=== PATIENT | male | born 1985 | race Caucasian/White ===

== ENCOUNTER 2016-11-25 18:47 | Emergency (ER) | payer OTHER ==
[~2016-11-25] VITALS: Ht 182.9 cm; Wt 66.4 kg
[~2016-11-25 18:47] MED LIST: NOHOMEMEDS
[2016-11-25 20:12] LABS: EOSINOPHIL (%) 0.9 % (0-5); EOSINOPHIL COUNT 0.1 K/uL (0-0.3); HEMATOCRIT 44.4 % (38.0-50.0); IMMATURE GRANULOCYTE (%) 0.3 % (0.0-0.7); LYMPHOCYTE COUNT 2.4 K/uL (1.0-2.8); MCHC 33.6 G/DL (30.0-36.0); MCV 89.5 FL (86-99); MEAN PLAT.VOLUME 9.9 uM^3 (9.0-12.4); MONOCYTE (%) 7.2 % (3-12); MONOCYTE COUNT 0.7 K/uL (0-0.8); NEUTROPHIL (%) 65.4 % (45-76); PLATELET COUNT 286 K/uL (156-360); RBC DIS.WIDTH-SD 39.7 % (39-53); RED BLOOD COUNT 4.96 M/uL (4.00-5.50); WHITE BLOOD COUNT 9.2 K/uL (4.1-10.2)
[2016-11-25 20:26] LABS: CHLORIDE 105 mEq/L (99-109); POTASSIUM 3.9 mEq/L (3.7-5.4); SODIUM 140 mEq/L (136-147)
[2016-11-25 20:28] LABS: GLUCOSE 85 mg/dL (70-99)
[2016-11-25 20:29] LABS: ANION GAP 12 MEQ/L (2-14)
[2016-11-25 20:30] LABS: TOTAL BILIRUBIN 0.6 mg/dL (0.0-1.0)
[2016-11-25 20:31] LABS: ALKALINE PHOSPHATASE 60 IU/L (3-129)
[2016-11-25 20:32] LABS: GFR ESTIMATE (CALCULATED) > 59 mL/min/
[2016-11-25 20:33] LABS: UREA NITROGEN (BUN) 14 mg/dL (9-23)
[2016-11-25 20:35] LABS: LIPASE 21 U/L (1.0-51.0)
[2016-11-25] MEDS ORDERED: ZANTAC300 MG PO (22:27)
[2016-11-25] MEDS ORDERED: ANTIVERT25 MG PO (22:27)
[2016-11-25] MEDS ORDERED: ZOFRAN ODT4 MG PO (22:27)
[2016-11-25] MEDS ORDERED: BENTYL20 MG PO (22:27)
[2016-11-25 22:43] VITALS: BP 128/80
== END 2016-11-25 22:44 | disposition home or self-care (01) ==
LOC: EME 18:47
PROVIDERS: Physician Assistant
DX: R11.0 Nausea (principal); R10.33 Periumbilical pain; H81.393 Other peripheral vertigo, bilateral; H65.03 Acute serous otitis media, bilateral; E86.0 Dehydration; F17.200 Nicotine dependence, unspecified, uncomplicated
CPT/HCPCS: 80053; 81003; 83690; 85025; 99281; 99284